=== PATIENT | male | born 1985 | race Caucasian/White ===

== ENCOUNTER → 2017-03-24 | Outpatient (CLI) | payer OTHER ==
--- NOTE | 2017-03-24 15:06 | REP ---
MR BRAIN WITHOUT AND WITH CONTRAST: HISTORY: Headache. CONTRAST: ProHance 17 mL. Several punctate areas of increased signal intensity on T2-weighted images are present in the subcortical white matter of the right parietal lobe. There are no areas of abnormal signal intensity in the corpus callosum, brain stem or cerebellum. There is no intraparenchymal hemorrhage, infarct, mass or midline shift. There is no abnormal enhancement. The ventricular system is normal in appearance. There is no extracerebral collection. The sinuses are clear. IMPRESSION: There are several punctate areas of increased signal intensity in the subcortical white matter of the right parietal lobe. This is a nonspecific finding. Signed by Gino Jewell MD 03/24/2017 03:06 P
== END ==
LOC: M RAD 09:25
PROVIDERS: ATTEND Family Medicine
DX: R51 Headache (principal)

== ENCOUNTER → 2017-08-19 | Outpatient (REF) | LOC: M SMT 13:38 | DX: M54.5 Low back pain (principal) ==